=== PATIENT | male | born 1965 | race Caucasian/White ===

== ENCOUNTER 2017-03-26 11:15 | Emergency (ER) | payer MEDICARE, MEDICAID ==
[~2017-03-26] VITALS: Ht 177.8 cm; Wt 91.0 kg
[~2017-03-26 11:15] MED LIST: BUPR75TA3; CLIN-80 PO; FLUO20CA39 PO; HYDR-3965 PO; LISI10TA4 PO; LITH450T2 PO; PENI500T2 PO; TERB250T85 PO; TRAZ-143 PO; ZOLP10TA5 PO
[2017-03-26] MEDS ORDERED: normal saline 1000ml 1,000 ML IV ONE (11:28)
[2017-03-26] MEDS ORDERED: normal saline 1000ML IV soln IVB ONE (11:30)
[2017-03-26 11:42] LABS: BASOPHILS # (AUTO) 0.1 X10'3 (0-0.2); BASOPHILS % (AUTO) 0.6 % (0-1); EOSINOPHILS # (AUTO) 0.4 X10'3 (0-0.9); EOSINOPHILS % (AUTO) 3.4 % (0-6); HEMATOCRIT 47.9 % (42.0-52.0); HEMOGLOBIN 15.9 g/dl (14.0-17.9); LYMPHOCYTES # (AUTO) 0.9 X10'3 (1.1-4.8); LYMPHOCYTES % (AUTO) 7.9 % (21-51); MEAN CORPUSCULAR HEMOGLOBIN 28.6 PG (27.0-31.0); MEAN CORPUSCULAR HGB CONC 33.2 % (33.0-36.5); MEAN CORPUSCULAR VOLUME 85.9 FL (78-98); MONOCYTES # (AUTO) 0.8 X10'3 (0-0.9); MONOCYTES % (AUTO) 7.5 % (2-12); NEUTROPHILS # (AUTO) 8.7 X10'3 (1.8-7.7); NEUTROPHILS % (AUTO) 80.6 % (42-75); PLATELET COUNT 340 X10'3 (140-440); RED BLOOD COUNT 5.57 X10'6 (4.70-6.10); RED CELL DISTRIBUTION WIDTH 14.1 % (11.5-14.5); WHITE BLOOD COUNT 10.8 X10'3 (4.5-11.0)
[2017-03-26 11:53] LABS: PARTIAL THROMBOPLASTIN TIME 27 SECONDS (22-32)
[2017-03-26 11:57] LABS: ALANINE AMINOTRANSFERASE 40 U/L (12-78); ALBUMIN 3.6 G/DL (3.4-5.0); ALBUMIN/GLOBULIN RATIO 0.9 (1.1-1.5); ALKALINE PHOSPHATASE 130 IU/L (46-116); ANION GAP 10 (8-16); ASPARTATE AMINO TRANSFERASE 34 U/L (10-37); BLOOD UREA NITROGEN 12 MG/DL (7-18); BUN/CREATININE RATIO 10.9 (5.4-32.0); CALCIUM 9.8 MG/DL (8.5-10.1); CHLORIDE 105 MMOL/L (99-107); GLUCOSE 104 MG/DL (70-104); LIPASE 127 U/L (73-393); MAGNESIUM 2.1 MG/DL (1.5-2.4); POTASSIUM 4.2 MMOL/L (3.5-5.1); SODIUM 140 MMOL/L (135-145); TOTAL CARBON DIOXIDE 25.5 MMOL/L (24-32); TOTAL PROTEIN 7.7 G/DL (6.4-8.2); eGFR 70 ML/MIN
[2017-03-26] MEDS: diatr meglu/diatrizoate 30ml oral sol.-(3 dose) bottle PO SCH ×2 (15:12→15:21)
[2017-03-26 15:48] VITALS: BP 155/75
[2017-03-27] MEDS ORDERED: BUPR150T8 PO (09:07)
[2017-03-27] MEDS ORDERED: LITH300T3 PO (09:09)
[2017-03-27] MEDS ORDERED: AMLO5TAB PO (09:09)
[2017-03-27] MEDS ORDERED: DULO60CA64 PO (09:10)
[2017-03-27] MEDS ORDERED: TRAZ-146 PO (09:10)
== END 2017-03-26 15:50 | disposition left against medical advice (07) ==
LOC: ER 11:15
DX: K56.41 Fecal impaction (principal); Q43.1 Hirschsprung's disease; E78.00 Pure hypercholesterolemia, unspecified; I10 Essential (primary) hypertension; Z59.0 Homelessness
CPT/HCPCS: 36415; 74018; 80053; 83690; 83735; 85025; 85610; 85730; 99285; J7030; Q9963

== ENCOUNTER 2017-03-27 07:31 | Inpatient (IN) | payer MEDICARE, MEDICAID ==
[~2017-03-27] VITALS: Ht 177.8 cm; Wt 90.9 kg
[2017-03-27] MEDS ORDERED: normal saline 1000ML IV soln IVB ONE (07:40)
[2017-03-27] MEDS ORDERED: iohexol 300mg/ml 100ml inj. ONE (07:55)
[2017-03-27 08:12] LABS: BASOPHILS # (AUTO) 0.1 X10'3 (0-0.2); BASOPHILS % (AUTO) 0.9 % (0-1); EOSINOPHILS # (AUTO) 0.4 X10'3 (0-0.9); HEMATOCRIT 49.4 % (42.0-52.0); HEMOGLOBIN 16.1 g/dl (14.0-17.9); LYMPHOCYTES # (AUTO) 0.7 X10'3 (1.1-4.8); LYMPHOCYTES % (AUTO) 4.8 % (21-51); MEAN CORPUSCULAR HEMOGLOBIN 28.3 PG (27.0-31.0); MEAN CORPUSCULAR HGB CONC 32.5 % (33.0-36.5); MEAN CORPUSCULAR VOLUME 87.1 FL (78-98); MEAN PLATELET VOLUME 8.5 FL (7.4-10.4); MONOCYTES % (AUTO) 7.3 % (2-12); NEUTROPHILS # (AUTO) 12.1 X10'3 (1.8-7.7); PLATELET COUNT 333 X10'3 (140-440); RED BLOOD COUNT 5.67 X10'6 (4.70-6.10); WHITE BLOOD COUNT 14.5 X10'3 (4.5-11.0)
[2017-03-27 08:22] LABS: PARTIAL THROMBOPLASTIN TIME 27 SECONDS (22-32); PROTHROMBIN TIME 10.5 SECONDS (9.0-12.0)
[2017-03-27 08:25] LABS: ALANINE AMINOTRANSFERASE 92 U/L (12-78); ALBUMIN 3.6 G/DL (3.4-5.0); ALBUMIN/GLOBULIN RATIO 0.9 (1.1-1.5); ALKALINE PHOSPHATASE 186 IU/L (46-116); ANION GAP 9 (8-16); ASPARTATE AMINO TRANSFERASE 77 U/L (10-37); BILIRUBIN,TOTAL 1.9 MG/DL (0.1-1.0); BLOOD UREA NITROGEN 14 MG/DL (7-18); CALCIUM 9.7 MG/DL (8.5-10.1); CHLORIDE 103 MMOL/L (99-107); GLUCOSE 134 MG/DL (70-104); LIPASE 105 U/L (73-393); POTASSIUM 4.3 MMOL/L (3.5-5.1); SODIUM 137 MMOL/L (135-145); TOTAL CARBON DIOXIDE 25.4 MMOL/L (24-32); TOTAL PROTEIN 7.8 G/DL (6.4-8.2); eGFR 53 ML/MIN
[2017-03-27] MEDS ORDERED: BUPR150T8 PO (09:07)
[2017-03-27] MEDS ORDERED: AMLO5TAB PO (09:09)
[2017-03-27] MEDS ORDERED: LITH300T3 PO (09:09)
[2017-03-27] MEDS ORDERED: TRAZ-146 PO (09:10)
[2017-03-27] MEDS ORDERED: DULO60CA64 PO (09:10)
[2017-03-27] MEDS ORDERED: magnesium 4gm in 100ml NS 100 ML IV PRN (10:30)
[2017-03-27] MEDS ORDERED: acetaminophen 325mg tablet PO PRN (10:30)
[2017-03-27] MEDS ORDERED: magnesium 2GM in 50ml NS 50 ML IV PRN (10:30)
[2017-03-27] MEDS ORDERED: ondansetron/PF 4mg/2ml inj IV PRN (10:30)
[2017-03-27] MEDS ORDERED: magnesium Cl slow-release 64mg tablet PO PRN (10:30)
[2017-03-27] MEDS ORDERED: mag hydrox/Alum hydrox/simeth 30ml oral suspension PO PRN (10:30)
[2017-03-27] MEDS ORDERED: potassium Cl 20 mEq SR tablet PO PRN ×2 (10:30)
[2017-03-27] MEDS ORDERED: potassium Cl 40MEQ/NS 500ml 500 ML IV PRN ×2 (10:30)
[2017-03-27 11:50] VITALS: BP 135/88
[2017-03-27] MEDS: pantoprazole 40 MG vial IV SCH (11:52)
[2017-03-27] MEDS: sodium chloride 0.45% 1,000 ML IV SCH ×2 (11:53→20:28)
[2017-03-27 18:30] VITALS: BP 121/65
[2017-03-27] MEDS: lithium carbonate 450mg CR tablet PO SCH (20:00)
[2017-03-27] MEDS: buPROPion SR 150mg tablet PO SCH (20:35)
[2017-03-27] MEDS: diatr meglu/diatrizoate 30ml oral sol.-(3 dose) bottle PO SCH (20:36)
[2017-03-27] MEDS: lithium carbonate 150mg capsule PO SCH (20:36)
[2017-03-27 22:00] VITALS: BP 137/94
[2017-03-28 06:03] LABS: BASOPHILS # (AUTO) 0.2 X10'3 (0-0.2); BASOPHILS % (AUTO) 1.5 % (0-1); EOSINOPHILS # (AUTO) 0.7 X10'3 (0-0.9); EOSINOPHILS % (AUTO) 6.7 % (0-6); HEMATOCRIT 46.1 % (42.0-52.0); HEMOGLOBIN 15.4 g/dl (14.0-17.9); LYMPHOCYTES # (AUTO) 1.1 X10'3 (1.1-4.8); LYMPHOCYTES % (AUTO) 10.7 % (21-51); MEAN CORPUSCULAR HEMOGLOBIN 29.1 PG (27.0-31.0); MEAN CORPUSCULAR HGB CONC 33.3 % (33.0-36.5); MEAN CORPUSCULAR VOLUME 87.2 FL (78-98); MEAN PLATELET VOLUME 9.1 FL (7.4-10.4); MONOCYTES # (AUTO) 1.4 X10'3 (0-0.9); MONOCYTES % (AUTO) 13.4 % (2-12); NEUTROPHILS # (AUTO) 7.3 X10'3 (1.8-7.7); NEUTROPHILS % (AUTO) 67.7 % (42-75); PLATELET COUNT 293 X10'3 (140-440); RED BLOOD COUNT 5.29 X10'6 (4.70-6.10); RED CELL DISTRIBUTION WIDTH 13.9 % (11.5-14.5); WHITE BLOOD COUNT 10.8 X10'3 (4.5-11.0)
[2017-03-28] MEDS: sodium chloride 0.45% 1,000 ML IV SCH ×3 (06:28→19:55)
[2017-03-28 06:38] LABS: ALANINE AMINOTRANSFERASE 134 U/L (12-78); ALBUMIN 3.3 G/DL (3.4-5.0); ALBUMIN/GLOBULIN RATIO 0.8 (1.1-1.5); ALKALINE PHOSPHATASE 262 IU/L (46-116); ANION GAP 9 (8-16); ASPARTATE AMINO TRANSFERASE 117 U/L (10-37); BLOOD UREA NITROGEN 14 MG/DL (7-18); CALCIUM 9.8 MG/DL (8.5-10.1); CHLORIDE 103 MMOL/L (99-107); GLUCOSE 92 MG/DL (70-104); MAGNESIUM 2.1 MG/DL (1.5-2.4); POTASSIUM 4.4 MMOL/L (3.5-5.1); SODIUM 137 MMOL/L (135-145); TOTAL CARBON DIOXIDE 24.6 MMOL/L (24-32); TOTAL PROTEIN 7.5 G/DL (6.4-8.2); eGFR 53 ML/MIN
[2017-03-28 06:52] VITALS: BP 120/58
[2017-03-28] MEDS: diatr meglu/diatrizoate 30ml oral sol.-(3 dose) bottle PO SCH ×2 (07:28→09:25)
[2017-03-28] MEDS: lithium carbonate 150mg capsule PO SCH ×2 (08:00→19:55)
[2017-03-28] MEDS: FLUoxetine 20mg capsule PO SCH (08:00)
[2017-03-28] MEDS: pantoprazole 40 MG vial IV SCH (08:00)
[2017-03-28] MEDS: buPROPion SR 150mg tablet PO SCH ×2 (08:00→19:55)
[2017-03-28] MEDS ORDERED: duloxetine 30mg CAPSULE.DR PO SCH (08:00)
[2017-03-28] MEDS: lisinopril 10 MG tablet PO SCH (08:00)
[2017-03-28] MEDS: enoxaparin 40mg/0.4ml syringe SUBCUT SCH (08:00)
[2017-03-28] MEDS: amLODIPine 5mg tablet PO SCH (08:00)
[2017-03-28] MEDS: lithium carbonate 450mg CR tablet PO SCH ×2 (08:00→19:20)
[2017-03-28 10:00] VITALS: BP 160/95
[2017-03-28 10:42] LABS: GLUCOSE, URINE NEGATIVE (Neg); KETONES,URINE 15 mg/dl (Neg); LEUKOCYTE ESTERASE ,URINE NEGATIVE (Neg); OCCULT BLOOD,URINE TRACE-INTACT (Neg); PH,URINE 5.5 (4.8-8.0); PROTEIN,URINE TRACE mg/dl (Neg)
[2017-03-28 10:45] LABS: COLOR,URINE ORANGE (Yellow); UA COLLECTION TYPE CLN CATCH MIDSTREAM
[2017-03-28 10:46] LABS: CLARITY,URINE SLIGHTLY CLOUDY (Clear)
[2017-03-28 10:55] LABS: NITRITES, URINE NEGATIVE (Neg)
[2017-03-28 10:59] LABS: BACTERIA,URINE NONE SEEN /HPF (Neg); MUCUS STRANDS FEW /LPF (Neg); RBC,URINE 0-2 /HPF (0-2); SQUAMOUS EPITHELIAL CELL,UR FEW /LPF (FEW); WBC,URINE 0-4 /HPF (0-4)
[2017-03-28] MEDS: K and/or MAG REPLACEMENT MC SCH (11:12)
[2017-03-28 13:51] VITALS: BP 125/95
[2017-03-28] MEDS: metroNIDAZOLE-Flagyl 500mg/NS 100 ML IV SCH ×2 (16:25→23:40)
[2017-03-28 18:30] VITALS: BP 145/99
[2017-03-28 22:00] VITALS: BP 143/100
[2017-03-29 06:00] VITALS: BP 137/81
[2017-03-29 06:48] LABS: ALANINE AMINOTRANSFERASE 146 U/L (12-78); ALBUMIN 3.3 G/DL (3.4-5.0); ALKALINE PHOSPHATASE 292 IU/L (46-116); ANION GAP 8 (8-16); ASPARTATE AMINO TRANSFERASE 97 U/L (10-37); BILIRUBIN,TOTAL 4.8 MG/DL (0.1-1.0); BLOOD UREA NITROGEN 15 MG/DL (7-18); BUN/CREATININE RATIO 10.7 (5.4-32.0); CALCIUM 10.1 MG/DL (8.5-10.1); CHLORIDE 101 MMOL/L (99-107); GLUCOSE 113 MG/DL (70-104); MAGNESIUM 2.3 MG/DL (1.5-2.4); POTASSIUM 4.1 MMOL/L (3.5-5.1); SODIUM 134 MMOL/L (135-145); TOTAL CARBON DIOXIDE 24.6 MMOL/L (24-32); eGFR 53 ML/MIN
[2017-03-29 06:52] LABS: ALBUMIN/GLOBULIN RATIO 0.8 (1.1-1.5); TOTAL PROTEIN 7.7 G/DL (6.4-8.2)
[2017-03-29] MEDS: sodium chloride 0.45% 1,000 ML IV SCH (07:46)
[2017-03-29] MEDS: buPROPion SR 150mg tablet PO SCH ×2 (07:49→20:01)
[2017-03-29] MEDS: metroNIDAZOLE-Flagyl 500mg/NS 100 ML IV SCH ×3 (07:49→23:41)
[2017-03-29] MEDS: FLUoxetine 20mg capsule PO SCH (07:50)
[2017-03-29] MEDS: amLODIPine 5mg tablet PO SCH (07:50)
[2017-03-29] MEDS: enoxaparin 40mg/0.4ml syringe SUBCUT SCH (07:50)
[2017-03-29] MEDS: lithium carbonate 150mg capsule PO SCH ×2 (07:50→20:02)
[2017-03-29] MEDS: pantoprazole 40 MG vial IV SCH (07:51)
[2017-03-29] MEDS: lisinopril 10 MG tablet PO SCH (07:52)
[2017-03-29] MEDS: lithium carbonate 450mg CR tablet PO SCH ×2 (07:52→19:24)
[2017-03-29] MEDS: K and/or MAG REPLACEMENT MC SCH (07:52)
[2017-03-29] MEDS ORDERED: duloxetine 30mg CAPSULE.DR PO SCH (08:00)
[2017-03-29 10:00] VITALS: BP 125/67
[2017-03-29 18:30] VITALS: BP 128/96
[2017-03-29 22:00] VITALS: BP 131/95
[2017-03-30] MEDS ORDERED: acetaminophen 325mg tablet PO ONE (02:40)
[2017-03-30] MEDS: sodium chloride 0.45% 1,000 ML IV SCH (03:21)
[2017-03-30 06:00] VITALS: BP 136/84
[2017-03-30 06:46] LABS: ALANINE AMINOTRANSFERASE 146 U/L (12-78); ALBUMIN 3.3 G/DL (3.4-5.0); ALBUMIN/GLOBULIN RATIO 0.7 (1.1-1.5); ALKALINE PHOSPHATASE 327 IU/L (46-116); ANION GAP 9 (8-16); ASPARTATE AMINO TRANSFERASE 84 U/L (10-37); BILIRUBIN,TOTAL 2.3 MG/DL (0.1-1.0); BLOOD UREA NITROGEN 18 MG/DL (7-18); BUN/CREATININE RATIO 13.8 (5.4-32.0); CALCIUM 10.6 MG/DL (8.5-10.1); CHLORIDE 101 MMOL/L (99-107); GLUCOSE 113 MG/DL (70-104); MAGNESIUM 2.3 MG/DL (1.5-2.4); POTASSIUM 4.7 MMOL/L (3.5-5.1); SODIUM 133 MMOL/L (135-145); TOTAL CARBON DIOXIDE 23.2 MMOL/L (24-32); eGFR 58 ML/MIN
[2017-03-30] MEDS: K and/or MAG REPLACEMENT MC SCH (07:49)
[2017-03-30] MEDS: pantoprazole 40 MG vial IV SCH (08:00)
[2017-03-30] MEDS: lithium carbonate 450mg CR tablet PO SCH (08:00)
[2017-03-30] MEDS: metroNIDAZOLE-Flagyl 500mg/NS 100 ML IV SCH (08:00)
[2017-03-30] MEDS: lisinopril 10 MG tablet PO SCH (08:00)
[2017-03-30] MEDS: buPROPion SR 150mg tablet PO SCH (08:01)
[2017-03-30] MEDS: lithium carbonate 150mg capsule PO SCH (08:01)
[2017-03-30] MEDS: amLODIPine 5mg tablet PO SCH (08:01)
[2017-03-30] MEDS: FLUoxetine 20mg capsule PO SCH (08:01)
[2017-03-30] MEDS: enoxaparin 40mg/0.4ml syringe SUBCUT SCH (08:02)
[2017-03-30 11:00] VITALS: BP 152/96
[2017-03-30] MEDS: LORazepam 2 mg/ml vial IV ONE ×2 (11:37→12:15)
[2017-03-30] MEDS ORDERED: OMEP20TA23 PO (13:45)
[2017-03-30] MEDS ORDERED: FLUO20CA39 PO ×2 (13:53→13:55)
[2017-03-30] MEDS ORDERED: METR500T4 PO (13:57)
[2017-03-30] MEDS ORDERED: metroNIDAZOLE 500mg tablet PO SCH (16:00)
[2017-03-31] MEDS ORDERED: pantoprazole 40mg Tablet.DR PO SCH (07:30)
[2017-03-31 13:23] LABS: HBSAG SCREEN Negative (Negative); HEP A AB, IGM Negative (Negative); HEP B CORE AB, IGM Negative (Negative); HEP B CORE AB, TOT Negative (Negative); HEPATITIS C ANTIBODY <0.1 s/co ratio (0.0-0.9)
== END 2017-03-30 16:10 | disposition home or self-care (01) | DRG 392 ==
LOC: ER 07:31 → ED HOLD 09:15 → ORTHO 4S 11:57
PROVIDERS: ADMIT Internal Medicine; ATTEND Internal Medicine
DX: K52.9 Noninfective gastroenteritis and colitis, unspecified (principal); K56.600 Partial intestinal obstruction, unspecified as to cause; D72.828 Other elevated white blood cell count; E78.00 Pure hypercholesterolemia, unspecified; E86.0 Dehydration; I10 Essential (primary) hypertension; F43.10 Post-traumatic stress disorder, unspecified; F31.9 Bipolar disorder, unspecified; F90.9 Attention-deficit hyperactivity disorder, unspecified type; Z93.2 Ileostomy status; Z90.49 Acquired absence of other specified parts of digestive tract; Z79.899 Other long term (current) drug therapy; Z59.0 Homelessness
CPT/HCPCS: 36415; 74176; 74177; 76700; 76775; 80053; 80178; 81001; 83690; 83735; 85025; 85610; 85730; 86704; 86705; 86706; 86709; 86803; 87070; 87340; 93005; 96361; 96374; 96375; 99285; C9113; J1650; J2060; J2270; J2405; J3490; J7030; J7042; Q9963; Q9967

== ENCOUNTER 2017-08-31 10:10 | Outpatient (CLI) | payer MEDICARE, MEDICAID ==
[~2017-08-31 10:10] MED LIST changes: +AMOX-422 PO; -BUPR75TA3; -CLIN-80 PO; -FLUO20CA39 PO; -HYDR-3965 PO; +HYDR-565 PO; -LISI10TA4 PO; +LITH300T3 PO; -LITH450T2 PO; -PENI500T2 PO; -TERB250T85 PO; -TRAZ-143 PO; +TRAZ-146 PO
== END 2017-08-31 11:44 | disposition home or self-care (01) ==
LOC: WOUND CARE 10:10
PROVIDERS: ATTEND Surgery
DX: K62.89 Other specified diseases of anus and rectum (principal); I10 Essential (primary) hypertension; E78.00 Pure hypercholesterolemia, unspecified; Z79.899 Other long term (current) drug therapy
CPT/HCPCS: 99215

== ENCOUNTER 2018-12-01 08:13 | Emergency (ER) | payer MEDICARE, MEDICAID ==
[~2018-12-01] VITALS: Ht 177.8 cm; Wt 111.0 kg
[~2018-12-01 08:13] MED LIST changes: -AMOX-422 PO; -HYDR-565 PO; -TRAZ-146 PO; +TRAZ-219 PO
[2018-12-01] MEDS ORDERED: HYDROcodone/acetaminophen 10/325mg tab PO ONE (08:35)
[2018-12-01] MEDS ORDERED: HYDR-4353 PO (08:39)
[2018-12-01 09:34] VITALS: BP 189/90
[2018-12-02] MEDS ORDERED: BACL10TA7 PO (12:59)
[2018-12-02] MEDS ORDERED: IBUP-1986 PO (13:08)
[2018-12-02] MEDS ORDERED: HYDR12.55 PO (13:08)
[2018-12-02] MEDS ORDERED: ARIP15TA8 PO (13:08)
== END 2018-12-01 09:05 | disposition home or self-care (01) ==
LOC: ER 08:13
DX: M47.816 Spondylosis without myelopathy or radiculopathy, lumbar region (principal); M54.42 Lumbago with sciatica, left side; G89.29 Other chronic pain; E78.00 Pure hypercholesterolemia, unspecified; I10 Essential (primary) hypertension; Z59.0 Homelessness; Z79.899 Other long term (current) drug therapy
CPT/HCPCS: 99284

== ENCOUNTER 2018-12-02 11:41 | Inpatient (IN) | payer MEDICARE, MEDICAID ==
[~2018-12-02] VITALS: Ht 177.8 cm; Wt 111.4 kg
[~2018-12-02 11:41] MED LIST changes: +HYDR-4353 PO
[2018-12-02] MEDS ORDERED: BACL10TA7 PO (12:59)
[2018-12-02] MEDS ORDERED: ARIP15TA8 PO (13:08)
[2018-12-02] MEDS ORDERED: HYDR12.55 PO (13:08)
[2018-12-02] MEDS ORDERED: IBUP-1986 PO (13:08)
[2018-12-02] MEDS ORDERED: potassium Cl 20 mEq SR tablet PO PRN (15:10)
[2018-12-02] MEDS ORDERED: magnesium 4gm in 100ml NS 100 ML IV PRN (15:10)
[2018-12-02] MEDS ORDERED: magnesium hydroxide 30ml (MOM) UD suspension PO PRN (15:10)
[2018-12-02] MEDS ORDERED: magnesium Cl slow-release 64mg tablet PO PRN (15:10)
[2018-12-02] MEDS ORDERED: magnesium 2GM in 50ml NS 50 ML IV PRN (15:10)
[2018-12-02] MEDS ORDERED: potassium CL 10mEq/100ml bag 100 ML IV PRN ×2 (15:10)
[2018-12-02] MEDS ORDERED: morphine 2 MG/ML inj. syringe IV PRN (15:10)
[2018-12-02] MEDS ORDERED: ondansetron/PF 4mg/2ml inj IV PRN (15:10)
[2018-12-02] MEDS ORDERED: mag hydrox/Alum hydrox/simeth 30ml oral suspension PO PRN (15:10)
[2018-12-02] MEDS ORDERED: HYDROcodone/acetaminophen 5mg/325mg tablet PO PRN (15:10)
[2018-12-02] MEDS ORDERED: acetaminophen 325mg tablet PO PRN ×2 (15:10)
[2018-12-02] MEDS ORDERED: baclofen 10mg tablet PO PRN (15:15)
[2018-12-02] MEDS: morphine 2 MG/ML inj. syringe IV PRN ×2 (15:59→21:08)
[2018-12-02] MEDS: normal saline 1000ml 1,000 ML IV SCH (16:02)
--- NOTE | 2018-12-02 17:00 | NUR ---
Patient in room [facility]. I have received report from BRISEYDA Fisher and had the opportunity to ask questions and assume patient care.
[2018-12-02 17:02] LABS: BASOPHILS # (AUTO) 0.1 X10'3 (0-0.2); BASOPHILS % (AUTO) 0.6 % (0-1); EOSINOPHILS # (AUTO) 0.1 X10'3 (0-0.9); HEMATOCRIT 47.2 % (42.0-52.0); HEMOGLOBIN 15.9 g/dl (14.0-17.9); LYMPHOCYTES # (AUTO) 1.5 X10'3 (1.1-4.8); LYMPHOCYTES % (AUTO) 17.2 % (21-51); MEAN CORPUSCULAR HEMOGLOBIN 28.5 PG (27.0-31.0); MEAN CORPUSCULAR HGB CONC 33.6 g/dL (33.0-36.5); MEAN PLATELET VOLUME 8.7 FL (7.4-10.4); MONOCYTES # (AUTO) 0.9 X10'3 (0-0.9); MONOCYTES % (AUTO) 10.1 % (2-12); NEUTROPHILS # (AUTO) 6.1 X10'3 (1.8-7.7); NEUTROPHILS % (AUTO) 71.1 % (42-75); PLATELET COUNT 296 X10'3 (140-440); RED BLOOD COUNT 5.56 X10'6 (4.70-6.10); RED CELL DISTRIBUTION WIDTH 13.4 % (11.5-14.5); WHITE BLOOD COUNT 8.6 X10'3 (4.5-11.0)
[2018-12-02 17:11] LABS: ALBUMIN 4.1 G/DL (3.4-5.0); ANION GAP 13 (8-16); BLOOD UREA NITROGEN 19 MG/DL (7-18); BUN/CREATININE RATIO 12.8 (5.4-32.0); CHLORIDE 108 MMOL/L (99-107); CREATININE 1.49 MG/DL (0.60-1.10); GLUCOSE 102 MG/DL (70-104); POTASSIUM 3.4 MMOL/L (3.5-5.1); SODIUM 144 MMOL/L (135-145); TOTAL CARBON DIOXIDE 23.5 MMOL/L (24-32); eGFR 49 ML/MIN
[2018-12-02 17:33] LABS: CLARITY,URINE CLEAR (Clear); COLOR,URINE YELLOW (Yellow); GLUCOSE, URINE NEGATIVE (Neg); KETONES,URINE NEGATIVE (Neg); LEUKOCYTE ESTERASE ,URINE NEGATIVE (Neg); NITRITES, URINE NEGATIVE (Neg); OCCULT BLOOD,URINE TRACE-INTACT (Neg); PH,URINE 5.5 (4.8-8.0); PROTEIN,URINE NEGATIVE (Neg); UROBILINOGEN,URINE 0.2 E.U/dL (0.2-1.0)
[2018-12-02 17:49] LABS: MUCUS STRANDS MODERATE /LPF (Neg)
[2018-12-02 17:50] VITALS: BP 178/98
[2018-12-02 17:52] LABS: BACTERIA,URINE FEW /HPF (Neg); SQUAMOUS EPITHELIAL CELL,UR FEW /LPF (FEW)
[2018-12-02 17:56] LABS: UA COLLECTION TYPE URINAL
[2018-12-02 18:00] VITALS: BP 167/96
--- NOTE | 2018-12-02 18:00 | NUR ---
Patient in room [facility]. I have received report from BRISEYDA Daniels and had the opportunity to ask questions and assume patient care.
[2018-12-02] MEDS ORDERED: HYDROchlorothiazide 12.5mg capsule PO ONE (18:10)
--- NOTE | 2018-12-02 19:05 | NUR ---
Patient came to unit around 1700, had a high BP in ER 168/92, got vitals around 1750 BP 178/98. Paged Dr. Corona and got hyrocholorothiazide to give now, gave at shift change. on coming RN aware and will monitor
[2018-12-02] MEDS: potassium Cl 20 mEq SR tablet PO PRN ×2 (19:06→23:42)
--- NOTE | 2018-12-02 19:08 | NUR ---
Problems reprioritized. Patient report given, questions answered & plan of care reviewed with BRISEYDA Sheppard.
[2018-12-02] MEDS: zolpidem 5mg tablet PO SCH (21:07)
[2018-12-02] MEDS: traZODone 50mg tablet PO SCH (21:07)
[2018-12-02] MEDS: heparin, porcine 5000 units/ml vial SQ SCH (21:08)
[2018-12-02] MEDS: HYDROcodone/acetaminophen 10/325mg tab PO PRN (22:30)
[2018-12-03] VITALS: BP 152/86
--- NOTE | 2018-12-03 06:22 | NUR ---
Problems reprioritized. Patient report given, questions answered & plan of care reviewed with BRISEYDA Child.
--- NOTE | 2018-12-03 06:42 | NUR ---
Patient in room [facility]. I have received report from Silver RAIN and had the opportunity to ask questions and assume patient care.
[2018-12-03 06:53] LABS: BASOPHILS # (AUTO) 0.1 X10'3 (0-0.2); BASOPHILS % (AUTO) 0.8 % (0-1); EOSINOPHILS # (AUTO) 0.2 X10'3 (0-0.9); EOSINOPHILS % (AUTO) 2.3 % (0-6); HEMATOCRIT 45.8 % (42.0-52.0); HEMOGLOBIN 15.4 g/dl (14.0-17.9); LYMPHOCYTES # (AUTO) 1.6 X10'3 (1.1-4.8); LYMPHOCYTES % (AUTO) 21.4 % (21-51); MEAN CORPUSCULAR HEMOGLOBIN 28.8 PG (27.0-31.0); MEAN CORPUSCULAR HGB CONC 33.6 g/dL (33.0-36.5); MEAN CORPUSCULAR VOLUME 85.5 FL (78-98); MEAN PLATELET VOLUME 8.9 FL (7.4-10.4); MONOCYTES % (AUTO) 12.5 % (2-12); NEUTROPHILS # (AUTO) 4.8 X10'3 (1.8-7.7); PLATELET COUNT 285 X10'3 (140-440); RED BLOOD COUNT 5.35 X10'6 (4.70-6.10); RED CELL DISTRIBUTION WIDTH 13.1 % (11.5-14.5); WHITE BLOOD COUNT 7.7 X10'3 (4.5-11.0)
[2018-12-03 07:04] LABS: ALANINE AMINOTRANSFERASE 80 U/L (12-78); ALBUMIN 3.6 G/DL (3.4-5.0); ALBUMIN/GLOBULIN RATIO 0.8 (1.1-1.5); ALKALINE PHOSPHATASE 91 IU/L (46-116); ANION GAP 12 (8-16); ASPARTATE AMINO TRANSFERASE 52 U/L (10-37); BLOOD UREA NITROGEN 17 MG/DL (7-18); CALCIUM 9.3 MG/DL (8.5-10.1); CHLORIDE 106 MMOL/L (99-107); CREATININE 1.31 MG/DL (0.60-1.10); GLUCOSE 91 MG/DL (70-104); MAGNESIUM 1.8 MG/DL (1.5-2.4); POTASSIUM 3.3 MMOL/L (3.5-5.1); SODIUM 143 MMOL/L (135-145); TOTAL CARBON DIOXIDE 25.4 MMOL/L (24-32); TOTAL PROTEIN 7.9 G/DL (6.4-8.2); eGFR 57 ML/MIN
[2018-12-03 07:08] VITALS: BP 156/98
[2018-12-03] MEDS: pantoprazole 40mg Tablet.DR PO SCH (07:30)
[2018-12-03] MEDS: HYDROchlorothiazide 12.5mg capsule PO SCH (07:31)
[2018-12-03] MEDS: heparin, porcine 5000 units/ml vial SQ SCH ×2 (07:31→21:32)
[2018-12-03] MEDS: K and/or MAG REPLACEMENT MC SCH (07:32)
[2018-12-03] MEDS: normal saline 1000ml 1,000 ML IV SCH (07:40)
[2018-12-03] MEDS ORDERED: ARIPIPRAZOLE 15 MG TABLET PO SCH (08:00)
[2018-12-03] MEDS: HYDROcodone/acetaminophen 10/325mg tab PO PRN (10:30)
[2018-12-03 12:40] VITALS: BP 152/95
--- NOTE | 2018-12-03 15:52 | NUR ---
Patient self care with ileostomy, emptied 3 times today. Addendum: 12/03/18 at 1554 by Danyell Eller RN Amended: Links added.
[2018-12-03 18:00] VITALS: BP 156/90
--- NOTE | 2018-12-03 18:16 | NUR ---
Problems reprioritized. Patient report given, questions answered & plan of care reviewed with Barbara RAIN.
--- NOTE | 2018-12-03 19:09 | NUR ---
Patient in room [facility]. I have received report from BRISEYDA Child and had the opportunity to ask questions and assume patient care. Addendum: 12/03/18 at 1910 by Barbara Anne RN Amended: Links added.
[2018-12-03] MEDS: potassium Cl 20 mEq SR tablet PO PRN (21:32)
[2018-12-03] MEDS: zolpidem 5mg tablet PO SCH (21:32)
[2018-12-03] MEDS: traZODone 50mg tablet PO SCH (21:32)
[2018-12-03 23:52] VITALS: BP 144/88
[2018-12-04 06:06] LABS: ALANINE AMINOTRANSFERASE 82 U/L (12-78); ALBUMIN 3.5 G/DL (3.4-5.0); ALBUMIN/GLOBULIN RATIO 0.9 (1.1-1.5); ALKALINE PHOSPHATASE 88 IU/L (46-116); ANION GAP 10 (8-16); ASPARTATE AMINO TRANSFERASE 53 U/L (10-37); BILIRUBIN,TOTAL 0.8 MG/DL (0.1-1.0); BLOOD UREA NITROGEN 23 MG/DL (7-18); BUN/CREATININE RATIO 18.3 (5.4-32.0); CALCIUM 8.9 MG/DL (8.5-10.1); CHLORIDE 110 MMOL/L (99-107); CREATININE 1.26 MG/DL (0.60-1.10); GLUCOSE 92 MG/DL (70-104); MAGNESIUM 1.9 MG/DL (1.5-2.4); POTASSIUM 3.7 MMOL/L (3.5-5.1); SODIUM 144 MMOL/L (135-145); TOTAL CARBON DIOXIDE 23.8 MMOL/L (24-32); TOTAL PROTEIN 7.5 G/DL (6.4-8.2); eGFR 60 ML/MIN
[2018-12-04 06:11] LABS: BASOPHILS # (AUTO) 0.1 X10'3 (0-0.2); BASOPHILS % (AUTO) 0.8 % (0-1); EOSINOPHILS # (AUTO) 0.3 X10'3 (0-0.9); EOSINOPHILS % (AUTO) 3.9 % (0-6); HEMATOCRIT 44.4 % (42.0-52.0); HEMOGLOBIN 15.1 g/dl (14.0-17.9); LYMPHOCYTES # (AUTO) 1.9 X10'3 (1.1-4.8); LYMPHOCYTES % (AUTO) 28.1 % (21-51); MEAN CORPUSCULAR HEMOGLOBIN 29.2 PG (27.0-31.0); MEAN CORPUSCULAR VOLUME 85.7 FL (78-98); MEAN PLATELET VOLUME 9.2 FL (7.4-10.4); MONOCYTES # (AUTO) 0.9 X10'3 (0-0.9); MONOCYTES % (AUTO) 12.7 % (2-12); NEUTROPHILS # (AUTO) 3.7 X10'3 (1.8-7.7); NEUTROPHILS % (AUTO) 54.5 % (42-75); PLATELET COUNT 258 X10'3 (140-440); RED BLOOD COUNT 5.18 X10'6 (4.70-6.10); RED CELL DISTRIBUTION WIDTH 13.2 % (11.5-14.5); WHITE BLOOD COUNT 6.9 X10'3 (4.5-11.0)
--- NOTE | 2018-12-04 06:12 | NUR ---
Problems reprioritized. Patient report given, questions answered & plan of care reviewed with BRISEYDA Child. Addendum: 12/04/18 at 0612 by Barbara Anne RN Amended: Links added.
[2018-12-04 07:03] VITALS: BP 151/85
[2018-12-04] MEDS: K and/or MAG REPLACEMENT MC SCH (08:20)
[2018-12-04] MEDS: pantoprazole 40mg Tablet.DR PO SCH (08:28)
[2018-12-04] MEDS: HYDROchlorothiazide 12.5mg capsule PO SCH (08:28)
[2018-12-04] MEDS: normal saline 1000ml 1,000 ML IV SCH (08:28)
[2018-12-04] MEDS: heparin, porcine 5000 units/ml vial SQ SCH (08:29)
[2018-12-04] MEDS ORDERED: miconazole nitrate cream 57gm TP SCH (09:15)
[2018-12-04] MEDS ORDERED: pneumococcal 23-VAL P-sac vacc 25 mcg/0.5ml vial IMVAC ONE (10:00)
[2018-12-04] MEDS ORDERED: PRED10TA23 PO (10:13)
[2018-12-04] MEDS ORDERED: OMEP20CA11 PO (10:13)
[2018-12-04] MEDS ORDERED: MICO15CR4 TP (10:13)
[2018-12-04] MEDS ORDERED: HYDR-4383 PO (10:14)
[2018-12-04] MEDS ORDERED: GABA300C PO (10:16)
--- NOTE | 2018-12-04 10:50 | NUR ---
Patient discharged on nursing end, waiting on ride to [employer]
[2018-12-04 11:00] VITALS: BP 154/94
--- NOTE | 2018-12-04 12:41 | NUR ---
Patient discharged home with [facility], education completed. Education on low cholesterol diet included in education and discharge packet . Patient taken to lobby by by [employer]. IV discontinued, tolerated well. Friend picked up patient for ride home.
[2018-12-04] MEDS ORDERED: miconazole nitrate 28.35 gm derm cream TP SCH (20:00)
== END 2018-12-04 12:31 | disposition home or self-care (01) | DRG 552 ==
LOC: ER 11:41 → ED HOLD 15:11 → SUR 3N 16:37
PROVIDERS: ADMIT Internal Medicine; ATTEND Internal Medicine
PROC: 3E0234Z Introduction of Serum, Toxoid and Vaccine into Muscle, Percutaneous Approach (ICD-10-PCS; principal; 2018-12-04)
DX: M48.07 Spinal stenosis, lumbosacral region (principal); M51.37 Other intervertebral disc degeneration, lumbosacral region; I10 Essential (primary) hypertension; G47.00 Insomnia, unspecified; F32.9 Major depressive disorder, single episode, unspecified; E78.00 Pure hypercholesterolemia, unspecified; G89.29 Other chronic pain; M62.830 Muscle spasm of back; Z93.3 Colostomy status; Z59.0 Homelessness; Z88.8 Allergy status to other drugs, medicaments and biological substances; Z23 Encounter for immunization
CPT/HCPCS: 36415; 80048; 80053; 81001; 83735; 85025; 87081; 87088; 90732; 97110; 97116; 97162; 97530; 99285; G0378; J1644; J2270; J7030

== ENCOUNTER 2018-12-23 22:14 | Emergency (ER) | payer MEDICARE, MEDICAID ==
[~2018-12-23] VITALS: Ht 177.8 cm; Wt 111.0 kg
[~2018-12-23 22:14] MED LIST changes: +ARIP15TA8 PO; +GABA300C PO; -HYDR-4353 PO; +HYDR-4383 PO; +HYDR12.55 PO; -LITH300T3 PO; +MICO15CR4 TP; +OMEP20CA11 PO; +PRED10TA23 PO
[2018-12-23] MEDS ORDERED: HYDR-3973 PO (22:40)
[2018-12-23] MEDS ORDERED: LIDOcaine 1% w/EPI 1:200,000 injection 10mL vial IM ONE (23:20)
[2018-12-23] MEDS ORDERED: LIDOcaine 1% W/epiNEPHrine 1:100,000 20ml vial IJ ONE (23:35)
[2018-12-24 00:31] VITALS: BP 166/93
== END 2018-12-24 00:37 | disposition home or self-care (01) ==
LOC: ER 22:16
DX: S36.63XA Laceration of rectum, initial encounter (principal); E78.00 Pure hypercholesterolemia, unspecified; I10 Essential (primary) hypertension; K76.0 Fatty (change of) liver, not elsewhere classified; G89.29 Other chronic pain; Z98.890 Other specified postprocedural states; Z60.2 Problems related to living alone; Z59.0 Homelessness; Z79.899 Other long term (current) drug therapy; Z93.3 Colostomy status; X58.XXXA Exposure to other specified factors, initial encounter; Y93.89 Activity, other specified; Y92.89 Other specified places as the place of occurrence of the external cause; Y99.8 Other external cause status
CPT/HCPCS: 12001; 70450; 74176; 99283; 99284

== ENCOUNTER 2019-02-27 13:27 | Emergency (ER) | payer MEDICARE, MEDICAID ==
[~2019-02-27] VITALS: Ht 177.8 cm; Wt 106.0 kg
[~2019-02-27 13:27] MED LIST changes: +HYDR-3973 PO; -HYDR-4383 PO; +OMEP-297 PO; -OMEP20CA11 PO; -PRED10TA23 PO
[2019-02-27 13:34] VITALS: BP 127/86
[2019-02-27] MEDS ORDERED: TIZA4TAB11 PO (14:12)
[2019-02-27] MEDS ORDERED: ketorolac trometh. 30mg/ml inj. IM ONE (14:15)
[2019-02-27] MEDS ORDERED: orphenadrine citrate 60mg/2ml inj. IM ONE (14:15)
[2019-02-27] MEDS ORDERED: MELO-100 PO (14:15)
[2019-02-27] MEDS ORDERED: ketorolac trometh inj. 60 MG/2 ML VIAL IM ONE (14:15)
== END 2019-02-27 15:45 | disposition home or self-care (01) ==
LOC: ER 13:28
DX: M54.5 Low back pain (principal); G89.29 Other chronic pain; E78.00 Pure hypercholesterolemia, unspecified; I10 Essential (primary) hypertension; Z98.890 Other specified postprocedural states; Z60.2 Problems related to living alone; Z59.0 Homelessness; Z79.899 Other long term (current) drug therapy
CPT/HCPCS: 96372; 99283; J1885; J2360

== ENCOUNTER 2019-03-26 09:59 | Day surgery (SDC) | payer MEDICARE, MEDICAID ==
[~2019-03-26 09:59] MED LIST changes: +MELO-100 PO; -OMEP-297 PO; +OMEP20CA15 PO; +TIZA4TAB11 PO; -TRAZ-219 PO; +TRAZ-256 PO
[2019-03-26] MEDS ORDERED: LIDOcaine 2% 5ml jelly ONE (11:25)
[2019-03-26] MEDS ORDERED: LIDOcaine 1%/PF 5ML 10 MG/ML VIAL ONE (11:39)
== END 2019-03-26 12:15 | disposition home or self-care (01) ==
LOC: WOUND CARE 09:59
PROVIDERS: ATTEND Surgery
DX: D21.9 Benign neoplasm of connective and other soft tissue, unspecified (principal); I10 Essential (primary) hypertension; E78.00 Pure hypercholesterolemia, unspecified; M54.5 Low back pain; G89.29 Other chronic pain; Z79.899 Other long term (current) drug therapy; Z98.890 Other specified postprocedural states; F32.9 Major depressive disorder, single episode, unspecified; L92.8 Other granulomatous disorders of the skin and subcutaneous tissue
CPT/HCPCS: 11401; 88305; A4663

== ENCOUNTER 2019-04-02 09:50 | Day surgery (SDC) | payer MEDICARE, MEDICAID ==
[2019-04-02] MEDS ORDERED: LIDOcaine 2% 5ml jelly ONE (10:53)
== END 2019-04-02 11:57 | disposition home or self-care (01) ==
LOC: WOUND CARE 09:50
PROVIDERS: ATTEND Surgery
DX: T81.89XD Other complications of procedures, not elsewhere classified, subsequent encounter (principal); D21.9 Benign neoplasm of connective and other soft tissue, unspecified; I10 Essential (primary) hypertension; E78.00 Pure hypercholesterolemia, unspecified; M54.5 Low back pain; G89.29 Other chronic pain; F32.9 Major depressive disorder, single episode, unspecified; Z79.899 Other long term (current) drug therapy; Z98.890 Other specified postprocedural states; Y83.8 Other surgical procedures as the cause of abnormal reaction of the patient, or of later complication, without mention of misadventure at the time of the procedure
CPT/HCPCS: 97597; A4663; A6021

== ENCOUNTER 2019-04-09 10:05 | Day surgery (SDC) | payer MEDICARE, MEDICAID ==
[2019-04-09] MEDS ORDERED: LIDOcaine 2% 5ml jelly ONE (11:07)
== END 2019-04-09 12:13 | disposition home or self-care (01) ==
LOC: WOUND CARE 10:05
PROVIDERS: ATTEND Surgery
DX: T81.89XD Other complications of procedures, not elsewhere classified, subsequent encounter (principal); D21.9 Benign neoplasm of connective and other soft tissue, unspecified; I10 Essential (primary) hypertension; E78.00 Pure hypercholesterolemia, unspecified; M54.5 Low back pain; G89.29 Other chronic pain; F32.9 Major depressive disorder, single episode, unspecified; Z79.899 Other long term (current) drug therapy; Z98.890 Other specified postprocedural states; Y83.8 Other surgical procedures as the cause of abnormal reaction of the patient, or of later complication, without mention of misadventure at the time of the procedure
CPT/HCPCS: 97597

== ENCOUNTER 2019-04-30 09:52 | Day surgery (SDC) | payer MEDICARE, MEDICAID ==
[2019-04-30] MEDS ORDERED: LIDOcaine 2% 5ml jelly ONE (11:24)
== END 2019-04-30 11:34 | disposition home or self-care (01) ==
LOC: WOUND CARE 09:52
PROVIDERS: ATTEND Surgery
DX: T81.89XD Other complications of procedures, not elsewhere classified, subsequent encounter (principal); L98.491 Non-pressure chronic ulcer of skin of other sites limited to breakdown of skin; K62.0 Anal polyp; D21.9 Benign neoplasm of connective and other soft tissue, unspecified; I10 Essential (primary) hypertension; E78.00 Pure hypercholesterolemia, unspecified; M54.5 Low back pain; G89.29 Other chronic pain; F32.9 Major depressive disorder, single episode, unspecified; Z79.899 Other long term (current) drug therapy; Z98.890 Other specified postprocedural states; Y83.8 Other surgical procedures as the cause of abnormal reaction of the patient, or of later complication, without mention of misadventure at the time of the procedure
CPT/HCPCS: 97597

== ENCOUNTER 2019-05-14 09:42 | Outpatient (CLI) | payer MEDICARE, MEDICAID ==
[2019-05-14] MEDS ORDERED: LIDOcaine 2% 5ml jelly ONE (11:22)
== END 2019-05-14 12:00 | disposition home or self-care (01) ==
LOC: WOUND CARE 09:42 → EDSTATUS 10:00 → WOUND CARE 12:00
PROVIDERS: ATTEND Surgery
DX: T81.89XD Other complications of procedures, not elsewhere classified, subsequent encounter (principal); L98.491 Non-pressure chronic ulcer of skin of other sites limited to breakdown of skin; K62.0 Anal polyp; D21.9 Benign neoplasm of connective and other soft tissue, unspecified; I10 Essential (primary) hypertension; E78.00 Pure hypercholesterolemia, unspecified; M54.5 Low back pain; G89.29 Other chronic pain; F32.9 Major depressive disorder, single episode, unspecified; Z79.899 Other long term (current) drug therapy; Z98.890 Other specified postprocedural states; Y83.8 Other surgical procedures as the cause of abnormal reaction of the patient, or of later complication, without mention of misadventure at the time of the procedure
CPT/HCPCS: A4663; G0463

== ENCOUNTER 2019-12-01 16:43 | Emergency (ER) | payer MEDICARE, MEDICAID ==
[~2019-12-01] VITALS: Ht 177.8 cm; Wt 102.3 kg
[2019-12-01] MEDS ORDERED: ondansetron 4mg rapidly disintigrating tab PO ONE (17:25)
[2019-12-01] MEDS ORDERED: morphine 10mg/ml inj. IM ONE (17:25)
[2019-12-01] MEDS ORDERED: diazepam 5mg tablet PO ONE (17:25)
[2019-12-01] MEDS ORDERED: ketorolac trometh. 30mg/ml inj. IM ONE (18:35)
[2019-12-01] MEDS ORDERED: oxyCODONE SR 10mg (sust. release) tab PO ONE (18:35)
[2019-12-01 19:04] VITALS: BP 169/110
== END 2019-12-01 19:00 | disposition home or self-care (01) ==
LOC: ER 16:43
DX: G89.29 Other chronic pain (principal); M54.5 Low back pain; R25.2 Cramp and spasm; E78.00 Pure hypercholesterolemia, unspecified; I10 Essential (primary) hypertension; Z60.2 Problems related to living alone; Z59.0 Homelessness; Z79.899 Other long term (current) drug therapy
CPT/HCPCS: 96372; 99284; J1885; J2270

== ENCOUNTER 2020-10-08 23:23 | Emergency (ER) | payer MEDICARE, MEDICAID ==
[~2020-10-08] VITALS: Ht 162.6 cm; Wt 80.0 kg
[~2020-10-08 23:23] MED LIST changes: +ARIP15TA19 PO; -ARIP15TA8 PO; +MICO14CR6 TP; -MICO15CR4 TP
[2020-10-08 23:25] VITALS: BP 195/95
[2020-10-09] MEDS ORDERED: ketorolac trometh inj. 60 MG/2 ML VIAL IM ONE (01:35)
[2020-10-09] MEDS ORDERED: HYDROcodone/acetaminophen 5mg/325mg tablet PO ONE (01:35)
[2020-10-09] MEDS ORDERED: orphenadrine citrate 60mg/2ml inj. IM ONE (01:35)
[2020-10-09] MEDS ORDERED: MELO-100 PO (01:36)
== END 2020-10-09 02:33 | disposition home or self-care (01) ==
LOC: ER 23:23
DX: M54.5 Low back pain (principal); G89.29 Other chronic pain; E78.00 Pure hypercholesterolemia, unspecified; I10 Essential (primary) hypertension; Z98.890 Other specified postprocedural states; Z60.2 Problems related to living alone; Z59.0 Homelessness; Z79.2 Long term (current) use of antibiotics; Z79.899 Other long term (current) drug therapy
CPT/HCPCS: 96372; 99284; J1885; J2360

== ENCOUNTER 2021-02-16 13:18 | Emergency (ER) | payer MEDICARE, MEDICAID ==
[~2021-02-16] VITALS: Ht 177.8 cm; Wt 113.6 kg
[2021-02-16 13:24] VITALS: BP 217/118
[2021-02-16] MEDS ORDERED: ketorolac trometh. 30mg/ml inj. IM ONE (15:05)
[2021-02-16] MEDS ORDERED: HYDR-3965 PO (15:06)
--- NOTE | 2021-02-16 15:18 | NUR ---
Pt given and understands d/c instructions. Ambulatory with a steady gait.
== END 2021-02-16 15:19 | disposition home or self-care (01) ==
LOC: ER 13:19
DX: G89.29 Other chronic pain (principal); M54.50 Low back pain, unspecified; E78.00 Pure hypercholesterolemia, unspecified; I10 Essential (primary) hypertension; Z98.890 Other specified postprocedural states; Z56.0 Unemployment, unspecified; Z79.899 Other long term (current) drug therapy
CPT/HCPCS: 96372; 99283; J1885

== ENCOUNTER 2021-04-10 18:08 | Emergency (ER) | payer MEDICARE, MEDICAID ==
[~2021-04-10] VITALS: Ht 184.2 cm; Wt 116.4 kg
[2021-04-10 19:12] LABS: BASOPHILS # (AUTO) 0.1 X10'3 (0-0.2); BASOPHILS % (AUTO) 1.1 % (0-1); EOSINOPHILS # (AUTO) 0.4 X10'3 (0-0.9); EOSINOPHILS % (AUTO) 3.9 % (0-6); HEMATOCRIT 44.6 % (42.0-52.0); LYMPHOCYTES # (AUTO) 2.1 X10'3 (1.1-4.8); LYMPHOCYTES % (AUTO) 21.7 % (21-51); MEAN CORPUSCULAR HEMOGLOBIN 28.5 PG (27.0-31.0); MEAN CORPUSCULAR HGB CONC 33.6 g/dL (33.0-36.5); MEAN CORPUSCULAR VOLUME 84.7 FL (78-98); MEAN PLATELET VOLUME 9.1 FL (7.4-10.4); MONOCYTES # (AUTO) 0.8 X10'3 (0-0.9); MONOCYTES % (AUTO) 8.7 % (2-12); NEUTROPHILS # (AUTO) 6.2 X10'3 (1.8-7.7); NEUTROPHILS % (AUTO) 64.6 % (42-75); PLATELET COUNT 333 X10'3 (140-440); RED BLOOD COUNT 5.27 X10'6 (4.70-6.10); RED CELL DISTRIBUTION WIDTH 13.3 % (11.5-14.5); WHITE BLOOD COUNT 9.6 X10'3 (4.5-11.0)
[2021-04-10 19:29] LABS: ALANINE AMINOTRANSFERASE 44 U/L (12-78); ALBUMIN 3.7 G/DL (3.4-5.0); ALBUMIN/GLOBULIN RATIO 0.7 (1.1-1.5); ALKALINE PHOSPHATASE 100 IU/L (46-116); ANION GAP 9 (8-16); ASPARTATE AMINO TRANSFERASE 31 U/L (10-37); BILIRUBIN,TOTAL 0.5 MG/DL (0.1-1.0); BLOOD UREA NITROGEN 20 MG/DL (7-18); BUN/CREATININE RATIO 16.4 (5.4-32.0); CALCIUM 9.4 MG/DL (8.5-10.1); CHLORIDE 103 MMOL/L (99-107); CREATININE 1.22 MG/DL (0.60-1.10); GLUCOSE 109 MG/DL (70-104); POTASSIUM 3.6 MMOL/L (3.5-5.1); SODIUM 139 MMOL/L (135-145); TOTAL CARBON DIOXIDE 27.5 MMOL/L (24-32); TOTAL PROTEIN 8.7 G/DL (6.4-8.2); eGFR 61 ML/MIN
--- NOTE | 2021-04-10 21:17 | NUR ---
CARLA FULTON MADE AWARE OF PT BP 228/143 AND HR 141
--- NOTE | 2021-04-10 21:29 | NUR ---
JULIETTE CRUZ AT BEDSIDE
[2021-04-10] MEDS ORDERED: labetalol 20mg/4ml (5mg/ml) syringe IV ONE ×2 (21:35→22:15)
[2021-04-10 23:27] VITALS: BP 167/94
== END 2021-04-10 23:31 | disposition home or self-care (01) ==
LOC: ER 18:08
DX: I10 Essential (primary) hypertension (principal); R00.0 Tachycardia, unspecified; F32.9 Major depressive disorder, single episode, unspecified; E78.00 Pure hypercholesterolemia, unspecified; G89.29 Other chronic pain; Z98.890 Other specified postprocedural states; Z60.2 Problems related to living alone; Z59.00 Homelessness unspecified; Z79.899 Other long term (current) drug therapy; Z79.2 Long term (current) use of antibiotics
CPT/HCPCS: 36415; 71045; 80053; 83880; 84484; 85025; 93005; 96374; 96376; 99285; J3490

== ENCOUNTER 2023-04-15 13:43 | Emergency (ER) | payer MEDICARE, MEDICAID ==
[~2023-04-15] VITALS: Ht 177.8 cm; Wt 114.8 kg
[2023-04-15] MEDS: ondansetron 4mg rapidly disintigrating tab PO ONE (15:55)
[2023-04-15] MEDS: oxyCODONE/APAP 10/325mg tablet PO ONE (15:56)
[2023-04-15 16:34] VITALS: BP 169/102; PULSE 117; RESP 17; TEMP 98.1; O2SAT 97
== END 2023-04-15 16:35 | disposition home or self-care (01) ==
LOC: ER 13:43
DX: M54.50 Low back pain, unspecified (principal); E78.00 Pure hypercholesterolemia, unspecified; I10 Essential (primary) hypertension; Z79.899 Other long term (current) drug therapy; Z79.2 Long term (current) use of antibiotics
CPT/HCPCS: 99283

== ENCOUNTER 2025-01-10 16:05 | Outpatient (CLI) | payer MEDICARE, MEDICAID ==
[~2025-01-10 16:05] MED LIST changes: -ARIP15TA19 PO; +ARIP15TA68 PO
--- NOTE | 2025-01-10 20:38 | RADIOLOGY REPORT ---
EXAM: MR MRI LUMBAR SPINE INDICATION: LOW BACK PAIN TECHNIQUE: Multiplanar, multisequence MR images of the lumbar spine were obtained without the administration of IV contrast. COMPARISON: None FINDINGS: [ANATOMY]: Five lumbar-type vertebral bodies are present. The most inferior well-formed disc space will be referred to as L5-S1 for purposes of numbering in this report. [VERTEBRAL BODIES]: No endplate compression fracture. No abnormal bone marrow replacement. Grade 1 anterolisthesis L5 over S1 measuring 2-3 mm. Chronic bilateral L5 pars defects with right-sided unipedicular L5-S1 fixation and left- sided L4-S1 fixation. Vertebral body hemangioma of the L1. [SPINAL CANAL]: The conus medullaris is normal in signal and morphology, terminating at the L1-L2 level. Minimal relative spinal canal narrowing primarily secondary to posterior epidural lipomatosis with anterior convexity most conspicuous at L2-3 [FACETS]: Multilevel facet arthropathy [OTHER]: Small muscle edema lower paraspinous musculature /sacrum likely related to denervation edema LEVEL BY LEVEL DISCUSSION: [T12-L1]: Unremarkable. [L1-L2]: Mild posterior epidural lipomatosis. [L2-L3]: Mild posterior epidural lipomatosis. Relative minimal spinal canal narrowing down to 9 mm. [L3-L4]: Mild posterior epidural lipomatosis. No significant disc herniation. Suspected mild bilateral foraminal narrowing secondary to facet arthropathy [L4-L5]: No significant disc herniation. [id number] bilateral foraminal narrowing secondary to facet arthropathy [L5-S1]: Disc uncovering measuring 3 mm. Asymmetric right-sided hardware placement of the lateral right-sided margin of the L5 vertebral body. Severe intervertebral disc height loss. Severe bilateral foraminal narrowing with the appearance of impingement of the exiting nerve roots IMPRESSION: 1. Chronic bilateral L5 pars defects with right-sided unipedicular L5-S1 fixation and left-sided L4-S1 fixation. 2. Severe bilateral foraminal narrowing at L5-S1 with the appearance of impingement of the exiting nerve roots. 3. No significant spinal canal narrowing.
== END 2025-01-10 23:59 | disposition home or self-care (01) ==
LOC: MRI02 16:05
PROVIDERS: ATTEND Anesthesiology Pain Medicine
DX: M48.07 Spinal stenosis, lumbosacral region (principal); M54.50 Low back pain, unspecified; E88.2 Lipomatosis, not elsewhere classified
CPT/HCPCS: 72148